=== PATIENT | male | born 1970 | race African-American/Black ===

== ENCOUNTER 2016-07-14 16:22 | Emergency (ER) | payer OTHER ==
[~2016-07-14] VITALS: Ht 177.8 cm; Wt 72.6 kg
[2016-07-14] MEDS ORDERED: IBUP600T26 PO (16:32)
[2016-07-14] MEDS ORDERED: PRIL20CA9 PO (16:32)
[2016-07-14] MEDS ORDERED: KETOROLAC 30 MG/ML VIAL (J1885) IV ONE (17:45)
[2016-07-14] MEDS ORDERED: NS 1,000 ML IV ONE (17:45)
[2016-07-14 18:05] LABS: DIFF SLIDE NUMBER 339; MEAN CORPUSCULAR HEMOGLOBIN 26.4 pg (27.0-33.0); MEAN CORPUSCULAR HGB CONC 30.3 g/dl (32.0-36.5); MEAN CORPUSCULAR VOLUME 87.3 fl (80.0-96.0); PLATELET COUNT, AUTOMATED 159 k/mm3 (150-450); RED CELL DISTRIBUTION WIDTH 15.9 % (11.5-14.5); WHITE BLOOD COUNT 2.4 K/mm3 (4.0-10.0)
[2016-07-14 18:27] LABS: ALBUMIN/GLOBULIN RATIO 0.91 (1.00-1.93); ALKALINE PHOSPHATASE 137 U/L (45-117); ALT/SGPT 26 U/L (12-78); AMYLASE 67 U/L (25-115); ANION GAP 8 MEQ/L (8-16); AST/SGOT 21 U/L (15-37); BILIRUBIN,DIRECT 0.2 MG/DL (0.0-0.2); BILIRUBIN,TOTAL 0.8 MG/DL (0.2-1.0); BLOOD UREA NITROGEN 13 MG/DL (7-18); CALCIUM LEVEL 8.9 MG/DL (8.5-10.1); CARBON DIOXIDE LEVEL 27 MEQ/L (21-32); CHLORIDE LEVEL 106 MEQ/L (98-107); CREATININE FOR GFR 1.18 MG/DL (0.70-1.30); GLOMERULAR FILTRATION RATE > 60.0 (>60); GLUCOSE, FASTING 85 MG/DL (70-105); POTASSIUM SERUM 4.4 MEQ/L (3.5-5.1); SODIUM LEVEL 141 MEQ/L (136-145); TOTAL PROTEIN 6.3 GM/DL (6.4-8.2)
[2016-07-14 18:35] LABS: EOSINOPHILS 4 % (0-5)
[2016-07-14 18:36] LABS: HYPOCHROMASIA 1+; OVALOCYTES 1+
[2016-07-14] MEDS ORDERED: ISOVUE-370 76% 100ML VIAL (Q9967) As Ordered ONE (18:44)
--- NOTE | 2016-07-14 19:40 | REPUSA ---
CT of the abdomen and pelvis with contrast Clinical statement: Pain. Technique: Multiple axial CT images were obtained from the base of the lungs through the floor of the pelvis utilizing 5 mm axial slices after administration of nonionic intravenous contrast. Coronal an d sagittal reconstructions were also obtained. No comparison is available. Findings: Chest: There is a small left-sided pleural effusion. There is a solid nodule in the lateral right low er lobe measuring 1.9 x 1.2 cm. Abdomen: Thereis a large solid mass left central abdomen, measuring 17.3 x 22.9 x 31.0 cm. The mass is predominately solid, with several cystic components, and demonstrates heterogeneous enhancement. T he left kidney is severely compressed posteriorly, the mass could possibly originate from the left ki dney. The right kidney appears unremarkable. There is no evidence of hydronephrosis or nephrolithiasi s. The liver, spleen, pancreas, gallbladder, and adrenal glands are unremarkable. The aorta is within normal limits. There is no evidence of abdominal lymphadenopathy or ascites. Pelvis: The bowel is unremarkable, with no obstructive or inflammatory changes. The urinary bladder i s within normal limits. The other pelvic structures appear grossly intact. There is no evidence of pe lvic lymphadenopathy. There is moderate amount of free fluid in the lower pelvis extending into the l eft flank region. Bones: There are no suspicious osseous abnormalities seen. Impression: 1. Extremely large, predominately solid enhancing mass the left central abdomen extending into the pe lvis, measuring up to 31 cm in diameter. The origin of this mass is uncertain, but could befrom the left kidney. Differential diagnosis includes. Soft tissue tumor such as sarcoma. Biopsy and surgical consultation is recommended. 2. No evidence of hydronephrosis or nephrolithiasis. 3 No obstructive or inflammatory bowel changes. 4 Moderate amount of free fluid in the left lower quadrant and lower pelvis. 5. Solid nodule in the left lower lobe. This is suspicious for metastatic disease. 6. Small left-sided pleural effusion.
[2016-07-14] MEDS ORDERED: NORCO, ANEXSIA 5/325MG TABLET (HYDROcodone/ACETAMINOPHEN) PO ONE (21:15)
[2016-07-14 21:21] VITALS: BP 132/74
--- NOTE | 2016-07-15 09:46 | ED PDOC ---
Post-Departure Follow-Up certified letter sent to pt re formal read of ct abd/p for fu [place] MD Jul 15, 2016 09:46
== END 2016-07-14 21:35 | disposition home or self-care (01) ==
LOC: M ED 17:30
DX: R19.00 Intra-abdominal and pelvic swelling, mass and lump, unspecified site (principal); R91.1 Solitary pulmonary nodule; J90 Pleural effusion, not elsewhere classified; K21.9 Gastro-esophageal reflux disease without esophagitis; F17.200 Nicotine dependence, unspecified, uncomplicated; Z85.830 Personal history of malignant neoplasm of bone; Z79.899 Other long term (current) drug therapy; Z91.030 Bee allergy status
CPT/HCPCS: 74177; 80048; 80076; 81001; 82150; 83605; 83690; 85025; 96374; 99283; J1885; Q9967